=== PATIENT | male | born 1985 | race Caucasian/White ===

== ENCOUNTER 2020-01-02 13:57 | Emergency (ER) | payer MEDICAID, SELFPAY ==
[~2020-01-02] VITALS: Ht 172.7 cm; Wt 90.4 kg
[2020-01-02 14:01] VITALS: BP 122/84
--- NOTE | 2020-01-02 14:39 | NUR ---
BIOLOGICAL SCIENTIST: PT TO ROOM FROM LOBBY.
[2020-01-02] MEDS ORDERED: hydrOXyzine 50MG TABLET ONE (15:30)
== END 2020-01-02 16:18 | disposition home or self-care (01) ==
LOC: ED 15:45
DX: L23.0 Allergic contact dermatitis due to metals (principal); F17.200 Nicotine dependence, unspecified, uncomplicated
CPT/HCPCS: 16020; 99282; Q0177; 99283

== ENCOUNTER 2020-02-12 00:11 | Emergency (ER) | payer OTHER ==
[~2020-02-12] VITALS: Ht 172.7 cm; Wt 97.6 kg
[2020-02-12 00:15] VITALS: BP 135/97
--- NOTE | 2020-02-12 01:06 | NUR ---
Attempted to room pt. NILx1 at this time.
== END 2020-02-12 01:54 ==
LOC: ED 01:48
DX: K08.89 Other specified disorders of teeth and supporting structures (principal); Z53.21 Procedure and treatment not carried out due to patient leaving prior to being seen by health care provider

== ENCOUNTER 2021-01-24 11:40 | Emergency (ER) | payer MEDICAID ==
[~2021-01-24] VITALS: Ht 170.2 cm; Wt 106.6 kg
--- NOTE | 2021-01-24 12:01 | NUR ---
ASSUMED CARE OF PT ON TUESDAY WENT TO [place], REMOVED ABCESS AND HE TOOK ABX. TUE MORNING HE AWOKE TO TIP OF PENIS BEING ENLARGED, ITCHY AND IT HAS NOT IMPROVED. PT PLACED IN GOWN. NADN, CALL LIGHT W/IN REACH.
[2021-01-24 12:04] VITALS: BP 132/74
--- NOTE | 2021-01-24 12:51 | NUR ---
TASK RN: DC EDUCATION PROVIDED, PT DEMONSTRATES UNDERSTANDING. PT AMBULATED STEADILY TO DC WITH RN
== END 2021-01-24 12:53 | disposition home or self-care (01) ==
LOC: ED 12:45
DX: N48.22 Cellulitis of corpus cavernosum and penis (principal)
CPT/HCPCS: 99283

== ENCOUNTER 2021-01-26 13:56 | Emergency (ER) | payer MEDICAID ==
[~2021-01-26] VITALS: Ht 170.2 cm; Wt 106.3 kg
[2021-01-26 14:44] VITALS: BP 129/43
== END 2021-01-26 15:42 | disposition home or self-care (01) ==
LOC: ED 15:39
DX: N48.22 Cellulitis of corpus cavernosum and penis (principal)
CPT/HCPCS: 99281

== ENCOUNTER 2021-01-28 17:29 | Emergency (ER) | payer MEDICAID ==
[~2021-01-28] VITALS: Ht 170.2 cm; Wt 105.8 kg
[2021-01-28 17:31] VITALS: BP 122/72
[2021-01-28 18:37] LABS: MICROSCOPIC INDICATED
--- NOTE | 2021-01-28 19:28 | NUR ---
CAKE ICER: NIL X 1 WHEN CALLED FOR ROOM.
--- NOTE | 2021-01-28 19:45 | NUR ---
LATE ENTRY: NIL X 2 WHEN CALLED FOR ROOM.
--- NOTE | 2021-01-28 20:02 | NUR ---
KEYBOARD ACTION ASSEMBLER: NIL X 3 WHEN CALLED FOR ROOM.
== END 2021-01-28 20:04 | disposition left against medical advice (07) ==
LOC: ED 19:00
DX: R52 Pain, unspecified (principal); Z53.21 Procedure and treatment not carried out due to patient leaving prior to being seen by health care provider
CPT/HCPCS: 81001